=== PATIENT | female | born 1970 | race Caucasian/White ===

== ENCOUNTER 2019-10-28 12:25 | Outpatient (CLI) | payer OTHER, SELFPAY ==
[2019-10-28 13:20] LABS: Alanine Aminotransferase 15 U/L (4-35); Albumin Level 4.5 g/dL (3.5-5.1); Alkaline Phosphatase 80 U/L (38-126); Aspartate Amino Transferase 25 U/L (14-36); Bilirubin,Total 0.3 mg/dL (0.2-1.3); Blood Urea Nitrogen 15 mg/dL (7-17); Calcium 8.9 mg/dL (8.4-10.2); Carbon Dioxide 26 mmol/L (22-30); Chloride 106 mmol/L (98-107); Estimated Glomerular Filt Rate > 60; Glucose 99 mg/dL (65-105); Potassium 4.6 mmol/L (3.4-5.0); Sodium 140 mmol/L (137-145)
[2019-10-28 13:27] LABS: Hematocrit 36.7 % (37.0-47.0); Hemoglobin 12.1 g/dL (12.0-15.0); Mean Corpuscular Hemoglobin 29.4 pg (26-34); Mean Corpuscular Volume 89.1 fl (80-100); Mean Platelet Volume 11.3 fl (7.4-10.4); Platelet Count Result 283 k/mm3 (150-375); Red Blood Count 4.12 M/mm3 (4.2-5.4); Red Cell Distribution Width 13.2 % (11.5-14.5); White Blood Count 5.7 K/mm3 (4.5-10.0)
[2019-10-28 14:20] LABS: Iron 85 ug/dL (37-170)
[2019-10-28 14:30] LABS: Percent Iron Saturation 24 % (20-50)
[2019-11-01 10:13] LABS: Vitamin D 1,25 (OH)2 Total 39 pg/mL (18-72); Vitamin D2 1,25 (OH)2 <8 pg/mL; Vitamin D3 1,25 (OH)2 39 pg/mL
== END 2019-10-28 12:26 | disposition home or self-care (01) ==
LOC: ANHLAB 12:27
PROVIDERS: Physician Assistant; PCP Family Medicine; Visit Provider Family Medicine
DX: I10 Essential (primary) hypertension (principal); D50.9 Iron deficiency anemia, unspecified; E55.9 Vitamin D deficiency, unspecified
CPT/HCPCS: 36415; 80053; 82652; 82728; 83540; 83550; 85027

== ENCOUNTER 2020-03-12 14:24 | Outpatient (CLI) | payer OTHER, SELFPAY ==
[2020-03-12 15:14] LABS: Alanine Aminotransferase 16 U/L (4-35); Albumin Level 4.2 g/dL (3.5-5.1); Alkaline Phosphatase 81 U/L (38-126); Aspartate Amino Transferase 26 U/L (14-36); Bilirubin,Total 0.3 mg/dL (0.2-1.3)
== END 2020-03-12 14:25 | disposition home or self-care (01) ==
PROVIDERS: PCP Family Medicine; Visit Provider Podiatrist Foot & Ankle Surgery
DX: B35.1 Tinea unguium (principal)
CPT/HCPCS: 36415; 80076

== ENCOUNTER 2021-04-08 16:04 | Outpatient (CLI) | payer OTHER, SELFPAY ==
[2021-04-08 16:24] LABS: Hematocrit 36.7 % (37.0-47.0); Hemoglobin 12.7 g/dL (12.0-15.0); Mean Corpuscular HGB Conc 34.6 g/dl (32-36); Mean Corpuscular Hemoglobin 31.1 pg (26-34); Mean Corpuscular Volume 89.7 fl (80-100); Platelet Count Result 285 k/mm3 (150-375); Red Blood Count 4.09 M/mm3 (4.2-5.4); Red Cell Distribution Width 12.3 % (11.5-14.5); White Blood Count 8.1 K/mm3 (4.5-10.0)
[2021-04-08 16:55] LABS: Alanine Aminotransferase 15 U/L (4-35); Albumin Level 4.3 g/dL (3.5-5.1); Alkaline Phosphatase 74 U/L (38-126); Anion Gap 9 mmol/L (8-16); Aspartate Amino Transferase 24 U/L (14-36); Bilirubin,Total 0.4 mg/dL (0.2-1.3); Blood Urea Nitrogen 21 mg/dL (7-17); Calcium 9.5 mg/dL (8.4-10.2); Carbon Dioxide 25 mmol/L (22-30); Chloride 108 mmol/L (98-107); Estimated Glomerular Filt Rate 43; Glucose 93 mg/dL (65-110); Potassium 4.5 mmol/L (3.4-5.0); Sodium 142 mmol/L (137-145)
[2021-04-08 17:56] LABS: Add Urine Microscopic? YES; Appearance Urine Cloudy (Clear); Bacteria Urine Trace /hpf; Bilirubin Urine Negative (Negative); Blood Urine Negative (Negative); Color Urine Amber (Yellow); Glucose Urine UA Negative (Negative); Ketones Urine Negative (Negative); Leukocyte Esterase Ur 3+ LEU/UL (NEGATIVE); Mucus Urine Rare /lpf; Nitrate Urine Negative (Negative); Protein Urine Negative (Negative); Specific Grav Ur 1.026 (1.001-1.035); Squamous Epithelial Cell Urine Few /hpf (Few); Urobilinogen Urine Negative mg/dL (<2.0); WBC Urine >75 /hpf (0-3)
[2021-04-08 17:57] LABS: Vitamin D 25 Hydroxy 36.1 ng/mL
[2021-04-08 18:29] LABS: Iron 55 ug/dL (37-170)
[2021-04-08 18:33] LABS: Percent Iron Saturation 15 % (20-50)
== END 2021-04-08 16:05 | disposition home or self-care (01) ==
LOC: ANHLAB 16:05
PROVIDERS: PCP Family Medicine; Visit Provider Physician Assistant
DX: Z00.00 Encounter for general adult medical examination without abnormal findings (principal); D50.9 Iron deficiency anemia, unspecified; E55.9 Vitamin D deficiency, unspecified; K22.70 Barrett's esophagus without dysplasia; K21.9 Gastro-esophageal reflux disease without esophagitis; I10 Essential (primary) hypertension
CPT/HCPCS: 36415; 80053; 81001; 82306; 82728; 83540; 83550; 84443; 85027

== ENCOUNTER 2021-12-22 09:49 | Outpatient (CLI) | payer OTHER, SELFPAY ==
[2021-12-22 10:22] LABS: Hematocrit 38.6 % (37.0-47.0); Hemoglobin 12.5 g/dL (12.0-15.0); Mean Corpuscular HGB Conc 32.4 g/dl (32-36); Mean Corpuscular Hemoglobin 29.8 pg (26-34); Mean Corpuscular Volume 92.1 fl (80-100); Mean Platelet Volume 11.2 fl (7.4-10.4); Platelet Count Result 242 k/mm3 (150-375); Red Blood Count 4.19 M/mm3 (4.2-5.4); Red Cell Distribution Width 12.9 % (11.5-14.5); White Blood Count 5.4 K/mm3 (4.5-10.0)
[2021-12-22 10:44] LABS: Alanine Aminotransferase 16 U/L (6-35); Albumin Level 4.3 g/dL (3.5-5.1); Alkaline Phosphatase 66 U/L (38-126); Anion Gap 8 mmol/L (8-16); Aspartate Amino Transferase 27 U/L (14-36); Bilirubin,Total 0.4 mg/dL (0.2-1.3); Blood Urea Nitrogen 18 mg/dL (7-17); CRP < 0.5 mg/dL (<1.0); Carbon Dioxide 26 mmol/L (22-30); Chloride 107 mmol/L (98-107); Estimated Glomerular Filt Rate 52; Glucose 97 mg/dL (65-110); Potassium 3.6 mmol/L (3.4-5.0); Sodium 141 mmol/L (137-145)
[2021-12-22 10:47] LABS: Appearance Urine Clear (Clear); Bilirubin Urine Negative (Negative); Blood Urine Negative (Negative); Color Urine Yellow (Yellow); Glucose Urine UA Negative (Negative); Ketones Urine Negative (Negative); Leukocyte Esterase Ur Negative LEU/UL (Negative); Nitrate Urine Negative (Negative); Protein Urine Negative (Negative); Urobilinogen Urine 0.2 mg/dL (<2.0)
[2021-12-22 11:05] LABS: Erythrocyte Sedimentation Rate 15 mm/hr (0-20)
[2021-12-22 11:34] LABS: Add Urine Microscopic? NO
== END 2021-12-22 09:50 | disposition home or self-care (01) ==
PROVIDERS: PCP Family Medicine
DX: R07.89 Other chest pain (principal); R13.10 Dysphagia, unspecified; R19.4 Change in bowel habit; K21.9 Gastro-esophageal reflux disease without esophagitis; R14.0 Abdominal distension (gaseous); R32 Unspecified urinary incontinence; R15.9 Full incontinence of feces
CPT/HCPCS: 36415; 80053; 81003; 84443; 85027; 85652; 86140

== ENCOUNTER 2023-02-07 13:21 | Emergency (ER) | payer OTHER, SELFPAY ==
--- NOTE | 2023-02-07 13:26 | ED.URI ---
HPI - URI/Sore Throat General Chief Complaint: Upper Respiratory Infection Stated Complaint: Ear ache; Sore Thraot Time Seen by Provider: 02/07/23 13:41 Source: patient and RN notes reviewed Mode of arrival: ambulatory Limitations: no limitations History of Present Illness HPI Narrative: 52 year old female presents with concern for nasal congestion, rhinorrhea, body aches, fatigue, sore throat, bilateral ear pain, chest congestion and cough. Reports symptoms started on Wednesday. She reports she has been taking DayQuil ibuprofen. She reports she has lost her voice MD elicited complaint: cough, sore throat and other (ear pain) Related Data Allergies Allergy/AdvReac Type Severity Reaction Status Date / Time lisinopril Allergy Unknown unk Verified 02/07/23 13:24 olmesartan Allergy Unknown Unknown Verified 02/07/23 13:24 Review of Systems Review of Systems: CONSTITUTIONAL: Report malaise, fatigue. EYES: Denies visual changes, redness, or discharge. ENT: Reports rhinorrhea, congestion, sinus pain, otalgia and sore throat. CARDIOVASCULAR: Denies chest pain, palpitations, or edema. RESPIRATORY: Reports cough. Denies dyspnea. GASTROINTESTINAL: Denies abdominal pain, nausea, vomiting, diarrhea SKIN: Denies rash or itching. MUSCULOSKELETAL: Reports myalgia. NEUROLOGIC: Denies headache. All systems reviewed & are unremarkable except as noted in HPI and below PMFSH Past Medical History Medical History López's esophagus GERD (gastroesophageal reflux disease) HTN (hypertension) JORDI (iron deficiency anemia) Left shoulder pain Vitamin D deficiency Family History Family History Father Diabetes mellitus Other Hypertension Social History Social History Smoking status: Never smoker Second hand tobacco smoke exposure: No Alcohol intake: never Substance use: never Substance use type: does not use Living arrangements: with family Occupation/Education: occupation Gender identity (if verbalized by the patient): Female Sexual Orientation (if Verbalized by the Patient): Straight or Heterosexual Comments At time of signature, agree with nursing past medical, surgical, social and family history. There is no relevant family history pertinent to the presenting complaint Exam Narrative: GENERAL: Well-appearing, well-nourished, and in no acute distress. HEAD: Normocephalic EYES: PERRLA, conjunctivae clear ENT: Nares clear, turbinates edematous and erythematous. Mucous membranes moist. Right TM pearly leach with dull light reflex, left TM erythematous and bulging; no tragal tenderness. Oropharynx not erythematous without lesions. Tonsils not enlarged and without exudate, no drooling, no trismus, uvula midline. Hoarse voice NECK: Supple. No lymphadenopathy CHEST: Clear to auscultation, breath sounds equal. No wheezing, rhonchi, rales, or stridor. No respiratory distress, speaks in full sentences. HEART: Regular rate and rhythm. No murmur heard. SKIN: Warm, dry, no rash. NEURO: Alert and oriented x3. PSYCH: Normal mood and affect Course Course Emergency Course: Patient is aware of diagnosis, understands and agrees to treatment plan. Anticipatory guidance given. Patient agrees to follow-up as directed and is aware of reasons to seek care at the emergency department. Portions of this record may have been created with voice recognition software Level of Care: Express Care Visit Vital Signs Vital signs: Reviewed. MDM - URI/Sore Throat MDM Narrative Medical decision making narrative: Differential diagnosis considered: Edward virus, strep pharyngitis, allergic rhinitis, upper respiratory tract infection, sinusitis, rhinosinusitis, nasopharyngitis. viral pharyngitis, otitis media, otitis externa, pneumonia, bronchitis, viral cough sy
[2023-02-07 13:28] VITALS: BP 153/99; PULSE 82; RESP 16; TEMP 36.8; O2SAT 100
== END 2023-02-07 13:52 | disposition home or self-care (01) ==
PROVIDERS: Emergency Provider Nurse Practitioner; PCP Family Medicine
DX: H66.92 Otitis media, unspecified, left ear (principal); J06.9 Acute upper respiratory infection, unspecified; I10 Essential (primary) hypertension; K21.9 Gastro-esophageal reflux disease without esophagitis; E55.9 Vitamin D deficiency, unspecified
CPT/HCPCS: 87081; 87880; 99213; G0463

== ENCOUNTER 2024-03-02 09:00 | Outpatient (CLI) | payer OTHER, SELFPAY ==
[2024-03-02 09:46] LABS: Hematocrit 37.9 % (37.0-47.0); Hemoglobin 11.9 g/dL (12.0-15.0); Mean Corpuscular HGB Conc 31.4 g/dl (32-36); Mean Corpuscular Hemoglobin 27.6 pg (26-34); Mean Corpuscular Volume 87.9 fl (80-100); Mean Platelet Volume 11.5 fl (7.4-10.4); Platelet Count Result 334 k/mm3 (150-375); Red Blood Count 4.31 M/mm3 (4.2-5.4); Red Cell Distribution Width 13.1 % (11.5-14.5); White Blood Count 7.3 K/mm3 (4.5-10.0)
[2024-03-02 09:49] LABS: Add Urine Microscopic? YES; Appearance Urine Clear (Clear); Bacteria Urine None Seen /hpf; Bilirubin Urine Negative (Negative); Blood Urine Negative (Negative); Color Urine Yellow (Yellow); Glucose Urine UA Negative (Negative); Ketones Urine Negative (Negative); Leukocyte Esterase Ur Trace LEU/UL (Negative); Nitrate Urine Negative (Negative); Non Pathogenic Casts 0-2; Protein Urine Trace mg/dL (Negative); RBC Urine 0-2 /hpf (0-2); Specific Grav Ur 1.016 (1.001-1.035); Squamous Epithelial Cell Urine None Seen /hpf (Few); Urobilinogen Urine 0.2 mg/dL (<2.0); WBC Urine 0-5 /hpf (0-3)
[2024-03-02 09:56] LABS: Alanine Aminotransferase 19 U/L (6-35); Albumin Level 4.2 g/dL (3.5-5.1); Alkaline Phosphatase 96 U/L (38-126); Anion Gap 7 mmol/L (4-12); Aspartate Amino Transferase 30 U/L (14-36); Bilirubin,Total 0.2 mg/dL (0.2-1.3); Blood Urea Nitrogen 14 mg/dL (7-17); Calcium 9.4 mg/dL (8.4-10.2); Carbon Dioxide 28 mmol/L (22-30); Chloride 107 mmol/L (98-107); Cholesterol 173 mg/dL (0-200); Estimated Glomerular Filt Rate > 60; Glucose 108 mg/dL (65-110); HDL Direct 55 mg/dL; Sodium 142 mmol/L (137-145); Triglycerides 147 mg/dL (<150)
[2024-03-02 10:07] LABS: LDL Cholesterol Direct 77 mg/dL
[2024-03-02 10:57] LABS: Vitamin D 25 Hydroxy 36.1 ng/mL
== END 2024-03-02 09:01 | disposition home or self-care (01) ==
PROVIDERS: PCP Family Medicine; Visit Provider Physician Assistant Medical
DX: Z00.00 Encounter for general adult medical examination without abnormal findings (principal); E55.9 Vitamin D deficiency, unspecified; I10 Essential (primary) hypertension
CPT/HCPCS: 36415; 80053; 80061; 81001; 82306; 84443; 85027

== ENCOUNTER 2024-11-02 04:52 | Emergency (ER) | payer OTHER, SELFPAY ==
--- NOTE | ~2024-11-02 | CT_ITS ---
CT of the Abdomen and Pelvis: Indication: Right upper quadrant pain Technique: 2.5 mm axial scans were obtained through the abdomen and pelvis following intravenous adm inistration of 100 cc of Omnipaque 350. Dose reduction technique was used on this scan by utilizing a utomated exposure control and iterative reconstruction technique. The dose-length product (DLP) was 1 180.69 mGy-cm. Findings: Scans through the lung bases are unremarkable. Large hiatal hernia present. The liver, spleen, gallbladder, adrenals and kidneys are within normal limits. There is relative fatt y infiltration of the pancreatic head as compared to the body/tail. No evidence of aortic aneurysm. No lymphadenopathy. No bowel obstruction or bowel wall thickening. There is no evidence to suggest acute appendicitis. Images through the pelvis were performed. Urinary bladder unremarkable. No pelvic mass seen. No ascit es. Impression: Large hiatal hernia. Normal gallbladder by CT imaging. Reviewed, dictated and finalized at [facility]. Impression: Large hiatal hernia. Normal gallbladder by CT imaging.
--- NOTE | ~2024-11-02 | XR_ITS ---
Clinical Indication: Chest pain PA and lateral views of the chest: Comparison: 03/16/2018 Findings: The lungs are clear, without evidence of focal consolidation or pleural effusion. Cardiome diastinal silhouette is within normal limits. Suspected moderate hiatal hernia. Osseous structures in tact. Impression: Clear lungs. Suspected moderate hiatal hernia. Reviewed, dictated and finalized at location . Impression: Clear lungs. Suspected moderate hiatal hernia.
--- OUTSIDE RECORDS SUMMARY | 2024-11-02 04:54 | XMS_ITS | Clinical Summary ---
Author Organization [facility] Address [address] [facility], [address] [address] Phone Care Team Providers Care Angle Dozer Operator Name Role Phone Olegario Connell MD Primary Care Provider Allergies Active Allergy Reactions Criticality Noted Date Comments Lisinopril Other (see Comments) 06/14/2018 cough Medications FEROSUL 325 (65 Fe) MG Tablet TK 1 T PO BID QD ON AN EMPTY STOMACH WITH A GLASS OF ORANGE JUICE 2 05/24/2018 Active Ascorbic Acid (VITAMIN C PO) Take 1 Tab by mouth daily. Active Cholecalciferol (VITAMIN D PO) Take by mouth. Active Acetaminophen (TYLENOL PO)Indications: bedtime prn Take by mouth. Active DiphenhydrAMINE HCl (BENADRYL PO)Indications: bedtime prn Take by mouth. Active omeprazole (PRILOSEC) 40 MG CAPSULE DELAYED RELEASE Take 1 Cap by mouth daily. 90 Cap 06/28/2018 Active Bismuth 262 MG Chewable Tablet 3 PO QID FOR 10 DAYS 120 Tab 06/29/2018 Active metroNIDAZOLE (FLAGYL) 250 MG Tablet TAKE 1.5 TABS PO QID FOR 10 DAYS 60 Tab 06/29/2018 Active doxycycline hyclate (VIBRAMYCIN) 100 MG Capsule TAKE ONE TAB BID FOR 10 DAYS 20 Cap 06/29/2018 Active omeprazole (PRILOSEC) 20 MG CAPSULE DELAYED RELEASE TAKE 1 CAPSULE BY MOUTH TWICE DAILY 180 Cap 3 06/29/2018 Active Family History Medical History Relation Name Comments Anxiety disorder Brother 1 Bipolar Disorder Brother 1 Depression Brother 1 No Known Problems Brother 2 Diabetes Father Hypertension Father Cancer Maternal Aunt lung Rashes/Skin Problems Maternal Aunt anxiet y Cancer Maternal Grandfather pancrea tic Stroke Maternal Grandmother Cancer Maternal Uncle leukemia Anxiety disorder Mother Depression Mother anxiety Hypertension Sister 1 Other-comment Sister 1 autoimmune ski n issue/ unknown Other-comment Sister 2 auto immune sk in issue/unknown Relation Name Status Comments Brother 1 Brother 2 Father Alive Maternal Aunt Maternal Grandfather Maternal Grandmother Maternal Uncle Mother Alive Sister 1 Sister 2 Social History Tobacco Use Types Packs/Day Years Used Date Smoking Tobacco: Never Smokeless Tobacco: Never Alcohol Use Standard Drinks/Week Comments Yes 0 (1 standard drink = 0.6 oz pur e alcohol) rarely PHQ-2 Answer Date Recorded PHQ-2 Score 0 02/18/2019 Comments Unknown Sex and Gender Information Value Date Recorded Sex Assigned at Not on file Legal Sex Female 10:32 PM CDT Gender Identity Not on file Sexual Orientation Not on file Occupation Industry Job Start Date Job End Date nurse Not on file Not on file Not on file Last Filed Vital Signs Vital Sign Reading Time Taken Comments Blood Pressure 149/95 06/28/2018 10:25 AM MARINE EQUIPMENT PRESERVATION INSPECTOR Pulse 58 06/28/2018 10:25 AM MARINE EQUIPMENT PRESERVATION INSPECTOR Temperature 36 C (96.8 F) 06/28/2018 10:25 AM MARINE EQUIPMENT PRESERVATION INSPECTOR Respiratory Rate 16 06/28/2018 10:25 AM MARINE EQUIPMENT PRESERVATION INSPECTOR Oxygen Saturation 99% 06/28/2018 10:25 AM MARINE EQUIPMENT PRESERVATION INSPECTOR Inhaled Oxygen Concentration - - Weight 91.6 kg (202 lb) 06/14/2018 3:00 PM MARINE EQUIPMENT PRESERVATION INSPECTOR Height 165.1 cm (5' 5) 06/14/2018 3:00 PM MARINE EQUIPMENT PRESERVATION INSPECTOR Body Mass Index 33.61 06/14/2018 3:00 PM MARINE EQUIPMENT PRESERVATION INSPECTOR Plan of Treatment Health Maintenance Due Date Last Done Comments Hepatitis C Virus (HCV) Screening 1968 TdaP Immunization 1968 Hepatitis B Immunization (1 of 3 - 19+ 3-dose series) 1987 Colonoscopy 2013 Colorectal Cancer Screening 2013 Cologuard 2018 Immunochemical Fecal Occult Blood 2018 Pneumococcal Immunization (5 0+ years) (1 of 1 - PCV) 2018 Zoster Immunization (1 of 2) 2018 Influenza Immunization (#1) 2024 SARS-COV-2 Immunization (2023-25 season) 2024 06/16/2020, 05/26/2020 Respiratory Syncytial Virus (RSV) Immunization (Adult) (1 - 1-dose 75+ series) 2043 Meningococcal Immunization (ACWY) Aged Out No longer eligible b ased on patient's age to complete this topic Rotavirus Immunization Aged Out No lo nger eligible based on patient's age to complete this topic Insurance [facility] Care Teams Angle Dozer Operator Relationship Specialty Start Date End Date Olegario Connell MD [address] [place] [address] PCP - General Family Medicine 04/12/18
--- OUTSIDE RECORDS SUMMARY | 2024-11-02 04:55 | XMS_ITS | Clinical Summary ---
Author Organization [facility] [address] Address [address] [place] [address] Care Team Providers Care Docking Pilot Name Role Phone Olegario Connell MD Primary Care Provider Allergies Active Allergy Reactions Criticality Noted Date Comments Lisinopril Other (See comments) Low 06/14/2018 cough Medications ferrous sulfate 325 mg (65 mg of elemental iron) tablet TK 1 T PO BID QD ON AN EMPTY STOMACH WITH A GLASS OF ORANGE JUICE 8 Active irbesartan (AVAPRO) 150 mg tablet Take 150 mg by mouth daily 2 Active omeprazole (PriLOSEC) 40 mg capsule Take 40 mg by mouth daily 9 Active methylcellulose , laxative, powder Take 1 tablespoon (approximately 15gm) at night/evening daily with 8-16 ounces of water. 1191 g 2 2 Active sod picosulf-mag ox-citric ac (Clenpiq) 10 mg-3.5 gram -12 gram/160 mL solution Take 1 kit by mouth as directed 320 mL 2 Active Active Problems Problem Noted Date Diagnosed Date Dysphagia 12/22/2021 Assessment & Plan (12/22/2021 12:01 PM CDT): -dysphagia with GERD -will schedule for an upper endoscopy for further evaluation -the meantime she will continue with PPI as before Change in bowel habits 12/22/2021 Chest pressure 12/22/2021 Assessment & Plan (12/22/2021 11:59 AM CDT): -no overt chest pain. Not related to exertion. No prior stress test. -recommended to seek immediate medical attention and go to the ER if symptoms worsen in any way. Offered going to ER today also. -has appointment with Cardiology in January. Recommended to prep on the appointment. Gastroesophageal reflux disease 12/22/2021 Bloating 12/22/2021 Urinary and fecal incontinence 12/22/2021 Assessment & Plan (12/22/2021 12:03 PM CDT): -at night, one time episode? One episode of urinary incontinence at night years ago? -no daytime symptoms. Regular bowel movements. No symptoms of fecal or urinary incontinence during the day. -prior 3 C-sections. No vaginal deliveries. -this was the main reason that prompted her to seek this clinic appointment. Therefore will do basic evaluation with CBC, CMP and ESR and CRP and a urinalysis to evaluate for basic hematological, metabolic, hepatic biomarkers, inflammatory biomarkers and to check back for urinary tract infection as a cause for possible urinary incontinence -also obtain TSH to evaluate for thyroid abnormality. -also obtain JANEL for possibility of autoimmune phenomenon however that is unlikely and low on differential -concern for neurological disease such as MS -discussed with her in detail. Particularly given the fact that she does not have any daytime symptoms at all and this happen at nighttime and was common urinary and fecal incontinence it is unlikely to be connected to mechanical GI issue. It does appear to be connected to neurological issue and emesis remains high on differential. -will refer to neurology for evaluation for emesis after the next clinic visit, particularly after she has seen Cardiology for her chest pressure sensation -will initiate therapy with soluble fiber supplementation daily. Screening for colon cancer 12/22/2021 Assessment & Plan (12/22/2021 12:00 PM CDT): -prior colonoscopy years ago. No family history of colon cancer. One time symptom of fecal and urinary incontinence as noted above, will schedule for a colonoscopy with ileoscopy for further evaluation. Contact dermatitis 10/25/2012 Encounters Date Type Department Care Team Description 09/07/2024 3:19 PM CDT - 09/07/2024 11:59 PM CDT Hospital Encounter [facility] [address] [place] [address] Pre-employment health screening examination Discharge Disposition: Discharge to home or self care 09/07/2024 Orders Only [facility] [address] (Third Floor) [place] [address] Hardeep Crump MD Pre-employment health screening examination (Primary Dx) from Last 3 Months Immunizations Immunization Administration Dates Next Due Pfizer SARS-CoV-2 Monovalent Vaccination (12+ Yrs) PURPLE 06/16/2020,05/26/2020 Surgical History Surgery Date Site/Laterality Comments UPPER GASTROINTESTINAL ENDOSCOPY 06/28/2018 [facility] [place], [place] Medical History Medical History Date Comments Hx Other Medical 3 sect ions ; Comments: JNS 11/01/2014 - Social History Tobacco Use Types Packs/Day Years Used Date Smoking Tobacco: Never Comments Unknown Sex and Gender Information Value Date Recorded Sex Assigned at Not on file 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 Gender Identity Not on file Sexual Orientation Not on file Obstetrics History Last Filed Vital Signs Vital Sign Reading Time Taken Comments Blood Pressure 120/80 12/22/2021 8:12 AM CDT Pulse 57 12/22/2021 8:12 AM CDT Temperature - - Respiratory Rate 12 12/22/2021 8:12 AM CDT Oxygen Saturation 98% 12/22/2021 8:12 AM CDT Inhaled Oxygen Concentration - - Weight 97.9 kg (215 lb 12.8 oz) 12/22/2021 8:12 AM CDT Height 166.4 cm (5' 5.5) 12/22/2021 8:12 AM CDT Body Mass Index 35.36 12/22/2021 8:12 AM CDT Plan of Treatment Health Maintenance Due Date Last Done Comments Breast Cancer Screening-Mammogram 1968 Cervical Cancer Screening 1968 Colon Cancer Screening-Colonoscopy 1968 Depression Screening 1968 Hepatitis C Screening 1968 DTaP/Tdap/Td Vaccine (1 - Tdap) 1979 Hepatitis B Screening 1986 Regular Well Visit/Exam 18-64 1986 Zoster Vaccine (1 of 2) 2018 Covid-19 Vaccine (2023-2 5 season) 2024 06/12/2022, 06/16/2020, 05/26/2020 Influenza Vaccine (Season Ended) 2025 Pneumococcal vaccine <65 Aged Out No longer eligible based on patient's age to complete this topic Procedures Procedure Name Priority Date/Time Associated Diagnosis Comments T-SPOT.TB Routine 09/07/2024 10:46 AM CDT Pre-employment health screening examination RUBELLA IGG Routine 09/07/2024 10:46 AM CDT Pre-employment health screening examination MUMPS IGG ANTIBODY Routine 09/07/2024 10 :46 AM CDT Pre-employment health screening examination MEASLES IGG ANTIBODY Routine 09/07/2024 10:46 AM CDT Pre-employment health screening examination VARICELLA ZOSTER ANTIBODY, IGG Routine 09/07/2024 10:46 AM CDT Pre-employment health screening examination from Last 3 Months Results * T-SPOT.TB Blood (09/07/2024 10:46 AM CDT) [facility] T-SPOT.TB Negative SeeBel Comment: Normal Value: Negative A negative test result does not exclude the possibility of exposure to or infection with Mycobacterium tuberculosis (M. tuberculosis). Patients with recent exposure to TB infected individuals exhibiting a negative T-SPOT.TB result should be considered for retesting within 6 weeks or if other relevant clinical symptoms indicate. Results from T-SPOT.TB testing must be used in conjunction with each individual's epidemiological history, current medical status, and results of other diagnostic evaluations. The T-SPOT.TB test is qualitative and results are reported as positive, borderline or negative, given that the test controls perform as expected. In line with the Centers for Disease Control and Prevention's 2010 recommendation to report quantitative measurements alongside the qualitative result, the laboratory provides spot counts for informational purposes only. The T-SPOT.TB test should not be interpreted as a quantitative test. T-SPOT.TB Panel A Spot Count 0 [facility] T-SPOT.TB Panel B Spot Count 1 [facility] T-SPOT.TB Negative Control Passed [facility] T-SPOT.TB Positive Control Passed [facility] Comment: Test Performed at: [id number], [employer] [address] [place] [id number] EDDIE CAMEJO,PHD Blood 09/07/2024 10:4 6 AM CDT 09/07/2024 4:15 PM CDT Narrative [facility] - 09/09/2024 11:12 AM CDT Patient is employed by/enrolled at:->[employer] [facility] Hardeep Crump MD LAB MICROBIOLOGY - GENERAL OR DERABLES Final Result Performing Organization Address City/[facility] [employer] de Phone Number [facility] [place] [address] * Measles IgG antibody Blood (09/07/2024 10:46 AM CDT) Measles IgG Reactive Comment:Reactive: Results gruber ggest response to immunization or prior exposure to the virus. Blood 09/07/2024 10:4 6 AM CDT 09/07/2024 4:04 PM CDT Narrative [facility] - 09/08/2024 11:22 AM CDT Patient is employed by/enrolled at:->[facility] Hardeep Crump MD LAB MICROBIOLOGY - GENERAL OR DERABLES Final Result Performing Organization Address City/[facility]/[employer] Phone Number [facility] [place] [address] * Rubella IgG antibody Blood (09/07/2024 10:46 AM CDT) Rubella IgG Reactive Comment:Reactive: Results gruber ggest response to immunization or prior exposure to the virus. Blood 09/07/2024 10:4 6 AM CDT 09/07/2024 4:04 PM CDT Narrative [facility] - 09/08/2024 11:22 AM CDT Patient is employed by/enrolled at:->[facility] Hardeep Crump MD LAB MICROBIOLOGY - GENERAL OR DERABLES Final Result Performing Organization Address City/[facility]/[employer] Phone Number [facility] [place] [address] * Varicella Zoster IgG antibody Blood (09/07/2024 10:46 AM CDT) VZV IgG Reactive Reactive Comment:Reactive: Results gruber ggest response to immunization or prior exposure to the virus. Blood 09/07/2024 10:4 6 AM CDT 09/07/2024 4:04 PM CDT Narrative [facility] - 09/08/2024 11:22 AM CDT Patient is employed by/enrolled at:->[facility] Hardeep Crump MD LAB MICROBIOLOGY - GENERAL OR DERABLES Final Result Performing Organization Address [facility]/[place] [address] * Mumps IgG antibody Blood (09/07/2024 10:46 AM CDT) Mumps IgG Reactive Comment:Reactive: Results gruber ggest response to immunization or prior exposure to the virus Blood 09/07/2024 10:4 6 AM CDT 09/07/2024 4:04 PM CDT Narrative [facility] - 09/08/2024 11:22 AM CDT Patient is employed by/enrolled at:->[facility] Hardeep Crump MD LAB MICROBIOLOGY - GENERAL OR DERABLES Final Result Performing Organization Address City/[facility] [address] from Last 3 Months Insurance [facility] Care Teams Docking Pilot Relationship Specialty Start Date End Date Olegario Connell MD [address] [facility] [address] [place] [address] PCP - General Family Medicine 04/03/20
--- OUTSIDE RECORDS SUMMARY | 2024-11-02 04:55 | XMS_ITS | Patient Health Record ---
Author Organization [employer] Address [address] [place] [address] Care Team Providers Care Field Operations Coordinator Name Role Phone Olegario Connell MD Primary Care Provider Unavaila ble Allergies Allergen (clinical drug ingredient) Drug/Non Drug Allergy documented on EMR Reaction Allergy Type Onset Date Status lisinopril Lisinopril Unknown Drug Allergy Activ e Reason For Referral No Information Medications Medication SIG (Take, Route, Frequency, Duration) Notes Start Date End Date Status PriLOSEC Active Irbesartan Active OTC/Vitamins Iron, MVI, Vit E , Vi B12, Vit D Active Social History Tobacco Use: Social History Observation Description Date Details (start date - stop date) Never Smoker NA - NA Tobacco Use/Smoking Question Answer Notes Are you a nonsmoker Problems Problem Type SNOMED Code ICD Code Onset Dates Problem Status W/U Status Risk Notes Problem 596047882 Chronic GERD (K21.9) Active confirmed She is currently doing well on Prilosec 20mg at nighttime. She does have mild solid food dysphagia. Will obtain her previous EGD report before considering repeat. 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 Problem [id number] Incontinence of feces, unspecified fecal incontinence type (R15.9) Active confirmed This was one episode and has not happened since. She does have a history of prior rectal injury but I am not sure if this is playing a role or not. Will monitor for now Plan Of Treatment No Information Insurance Providers Payer Name Payer Address Payer Phone Subscriber Number Group Number Insured Name Patient Relationship to Insured Coverage Start Date Coverage End Date [facility] [employer] E2 [address] [address] [place] [phone] [id number] Maris Reed Self - patient is the insured Medical (General) History Medical History History ICD Code GERD López's Esophagus Anemia Hypertension Surgical History Surgery Date(Month/Year) EGD (Outside Provider) 5+ years Colonoscopy (Outside Provider) 5+ years x3 Hospitalization History Reason Date(Month/Year) GERD, rule out cardiac issues
--- OUTSIDE RECORDS SUMMARY | 2024-11-02 04:55 | XMS_ITS | Referral Summary ---
Author Organization [facility] [address] Address [address] [place] [address] Care Team Providers Care Scow Hand Name Role Phone Olegario Connell MD Primary Care Provider Encounters Date Type Department Care Team Description 09/07/2024 3:19 PM CDT - 09/07/2024 11:59 PM CDT Hospital Encounter [facility] [address] [place] [address] Pre-employment health screening examination Discharge Disposition: Discharge to home or self care 09/07/2024 Orders Only [facility] Healthcare Occup[facility]onal Health [address] (Third Floor) [place] [address] Hardeep Crump MD Pre-employment health screening examination (Primary Dx) from Last 3 Months Allergies Active Allergy Reactions Criticality Noted Date [...] ileoscopy for further evaluation. 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 T-SPOT.TB Panel A Spot Count 0 [facility] T-SPOT.TB Panel B Spot Count 1 [facility] T-SPOT.TB Negative Control Passed [facility] T-SPOT.TB Positive Control Passed [facility] Comment: Test Performed at: [facility] [employer] [address] [place] [id number] EDDIE CAMEJO,PHD Blood 09/07/2024 10:4 6 AM CDT 09/07/2024 4:15 PM CDT Narrative [facility] - 09/09/2024 11:12 AM CDT Patient is employed by/enrolled at:->[facility] Hardeep Crump MD LAB MICROBIOLOGY - GENERAL OR DERABLES Final Result [facility] [place] [address] * Measles IgG antibody Blood (09/07/2024 10:46 AM CDT) Measles IgG Reactive Comment:Reactive: Results gruber ggest response to immunization or prior exposure to the virus. Blood 09/07/2024 10:4 6 AM CDT 09/07/2024 4:04 PM CDT Narrative [facility] - 09/08/2024 11:22 AM CDT Patient is employed by/enrolled at:->[facility] us Hardeep Crump MD LAB MICROBIOLOGY - GENERAL OR DERABLES Final Result Performing Organization Address [facility] de Phone Number [facility] [place] [address] * Rubella IgG antibody Blood (09/07/2024 10:46 AM CDT) Rubella IgG Reactive Comment:Reactive: Results gruber ggest response to immunization or prior exposure to the virus. Blood 09/07/2024 10:4 6 AM CDT 09/07/2024 4:04 PM CDT Narrative [facility] - 09/08/2024 11:22 AM CDT Patient is employed by/enrolled at:->[facility] us Hardeep Crump MD LAB MICROBIOLOGY - GENERAL OR DERABLES Final Result Performing Organization Address [facility] de Phone Number [facility] [place] [employer] [place] [address] * Varicella Zoster IgG antibody Blood (09/07/2024 10:46 AM CDT) VZV IgG Reactive Reactive Comment:Reactive: Results gruber ggest response to immunization or prior exposure to the virus. Blood 09/07/2024 10:4 6 AM CDT 09/07/2024 4:04 PM CDT Narrative [facility] - 09/08/2024 11:22 AM CDT Patient is employed by/enrolled at:->[facility] us Hardeep Crump MD LAB MICROBIOLOGY - GENERAL OR DERABLES Final Result [facility] [place] [address] * Mumps IgG antibody Blood (09/07/2024 10:46 AM CDT) Mumps IgG Reactive Comment:Reactive: Results gruber ggest response to immunization or prior exposure to the virus Blood 09/07/2024 10:4 6 AM CDT 09/07/2024 4:04 PM CDT Narrative [facility] - 09/08/2024 11:22 AM CDT Patient is employed by/enrolled at:->[facility] us Hardeep Crump MD LAB MICROBIOLOGY - GENERAL OR DERABLES Final Result Performing Organization Address [facility] Co de Phone Number [facility] [place] [address] from Last 3 Months Insurance [facility] Care Teams Scow Hand Relationship Specialty Start Date End Date Olegario Connell MD [address] [facility] [address] [place] [id number] PCP - General Family Medicine 04/03/20
--- NOTE | 2024-11-02 05:03 | ECG_ITS ---
Test Date: 2024-11-02 05:04:12 Measurements Intervals [place] Rate: 60 P: 58 SC: 164 QRS: 18 QRSD: 91 T: 64 QT: 432 QTc: 434 Interpretive Statements SINUS RHYTHM NONSPECIFIC T-WAVE ABNORMALITY No previous ECG available for comparison Electronically Signed On 11-03-2024 10:59:58 CDT by Juventino Barraza M.D.
[2024-11-02 05:05] VITALS: PULSE 69
[2024-11-02 05:11] LABS: Basophils Absolute Auto 0.1 K/mm3 (0.0-0.1); Basophils Percent Auto 0.8 % (0.2-1.2); Eosinophils Absolute Auto 0.2 K/mm3 (0-0.3); Hematocrit 35.9 % (37.0-47.0); Hemoglobin 10.6 g/dL (12.0-15.0); Immature Granulocyte Absolute 0.02 K/mm3 (0.00-0.031); Immature Granulocyte Percent A 0.3 % (0-0.5); Lymphocytes Absolute Auto 2.09 K/mm3 (0.9-3.2); Lymphocytes Percent Auto 32.5 % (18.3-44.2); Mean Corpuscular HGB Conc 29.5 g/dl (32-36); Mean Corpuscular Hemoglobin 23.8 pg (26-34); Mean Corpuscular Volume 80.5 fl (80-100); Mean Platelet Volume 11.1 fl (7.4-10.4); Monocytes Absolute Auto 0.6 K/mm3 (0.1-0.6); Monocytes Percent Auto 9.2 % (2.6-8.5); Neutrophils Absolute Auto 3.5 K/mm3 (1.3-6.7); Neutrophils Percent Auto 54.2 % (45.5-73.1); Platelet Count Result 347 k/mm3 (150-375); Red Blood Count 4.46 M/mm3 (4.2-5.4); Red Cell Distribution Width 22.9 % (11.5-14.5); White Blood Count 6.4 K/mm3 (4.5-10.0)
[2024-11-02 05:22] LABS: Alanine Aminotransferase 23 U/L (6-35); Albumin Level 4.6 g/dL (3.5-5.1); Alkaline Phosphatase 82 U/L (38-126); Anion Gap 10 mmol/L (4-12); Aspartate Amino Transferase 32 U/L (14-36); Bilirubin,Total 0.3 mg/dL (0.2-1.3); Blood Urea Nitrogen 16 mg/dL (7-17); Calcium 9.5 mg/dL (8.4-10.2); Carbon Dioxide 25 mmol/L (22-30); Chloride 108 mmol/L (98-107); Estimated CRCL calculation 62 ml/min; Estimated Glomerular Filt Rate 57; Glucose 129 mg/dL (65-110); Lipase 63 U/L (23-300); Potassium 3.6 mmol/L (3.4-5.0); Sodium 143 mmol/L (137-145)
[2024-11-02 05:24] LABS: INR 0.9; Prothrombin Time 12.9 Seconds (11.1-14.7)
[2024-11-02 05:25] LABS: Partial Thromboplastin Time 23.8 Seconds (22.3-36.8)
[2024-11-02 05:29] LABS: Anisocytosis 1+; Hypochromasia 1+; Platelet Estimate Adequate (Adequate); Schistocytes None Seen
[2024-11-02 05:33] LABS: Troponin I < 0.012 ng/mL (0.000-0.034)
--- NOTE | 2024-11-02 06:00 | ED.CHESTPAIN ---
HPI - Chest Pain General Chief Complaint: Chest Pain Stated Complaint: chest pain Time Seen by Provider: 11/02/24 05:11 History of Present Illness HPI narrative: 54-year-old female with history of hypertension, GERD with López's esophagitis presenting to the emergency department with right-sided chest/upper quadrant abdominal pain that was sudden onset woke her up from sleep at 4:18 a.m.. Patient states she went to bed normally without any concerns. She woke up with severe right upper quadrant abdominal pain radiating into her chest and back associated with some diaphoresis and nausea. She went to the bathroom and had a bowel movement. Patient states she got up from the bathroom and symptoms significantly improved prior to arrival to the emergency department and presently she is asymptomatic on my evaluation. She states she feels like she has been having gallbladder issues in this could been related but she was worried about her heart as well. No history of cardiac disease or coronary artery disease. No history of NM. does not take any blood thinner medications. She was otherwise in her normal state of health. No history of abdominal surgeries. No trauma or injury. No fever, chills. Related Data Allergies Allergy/AdvReac Type Severity Reaction Status Date / Time lisinopril Allergy Unknown unk Verified 05/10/24 14:52 olmesartan Allergy Unknown Unknown Verified 05/10/24 14:52 Review of Systems Review of Systems: As reviewed above in HPI PMFSH Past Medical History Medical History Left shoulder pain JORDI (iron deficiency anemia) Vitamin D deficiency López's esophagus GERD (gastroesophageal reflux disease) HTN (hypertension) Family History Family History Father Diabetes mellitus Other Hypertension Social History Social History Smoking status: Never smoker Second hand tobacco smoke exposure: No Alcohol intake: never Substance use: never Substance use type: does not use Living arrangements: with family Occupation/Education: occupation Gender identity (if verbalized by the patient): Female Sexual Orientation (if Verbalized by the Patient): Straight or Heterosexual Exam Narrative: GENERAL: [Well-appearing, well-nourished, and in no acute distress.] HEAD: [Normocephalic, atraumatic.] EYES: [PERRLA and EOMI.] ENT: Nares clear, no rhinorrhea or epistaxis. Mucous membranes moist. NECK: Supple. CHEST: [Clear to auscultation. No respiratory distress.] HEART: [Regular rate and rhythm]. No murmur heard. [Normal peripheral pulses.] ABDOMEN: [Soft, nondistended], [nontender], negative Schaffer sign [No rigidity or guarding] EXTREMITIES: Normal range of motion. [No edema.] SKIN: Warm, dry, no rash. NEURO: [No focal deficits]. Alert and oriented [x3.] PSYCH: [Normal mood and affect.] Course Vital Signs Vital signs: Vital Signs Oxygen Delivery Room Air 11/02/24 05:01 Pulse Rate 58 L 11/02/24 06:02 Respiratory Rate 17 11/02/24 06:02 Blood Pressure 125/79 11/02/24 06:02 Pulse Oximetry 97 11/02/24 06:02 Oxygen Delivery Room Air 11/02/24 05:01 MDM - Chest Pain MDM Narrative Medical decision making narrative: 54-year-old female with history of hypertension, GERD, Ólpez's esophagus. Patient presents to the ER for evaluation of sudden onset right upper quadrant and right-sided chest pain that woke her from sleep associated with nausea and pain radiating towards her back. She went to the bathroom had a bowel movement and had symptomatic resolution prior to arrival to the emergency department. Present she is asymptomatic with a reassuring examination. She has a reassuring set of vitals within normal blood pressure 125/79, pulse 69, 97% on room air. Soft nontender nondistended abdomen. Clear breath sounds throughout, strong symmetric pulses. Considerations presently are for cholelithiasis being symptomatic, cholecystitis, pneumonia, pneumothorax, less likely ACS or cardiopulmonary pathology such as PE. She meets low Wells criteria. Workup initiated this time including CBC, CMP, lipase, chest x-ray and troponin. A CT abdomen pelvis with contrast was ordered to evaluate the right upper quadrant and potential gallbladder pathology as well as any other process. Patient presently is asymptomatic with no pain or nausea. Will be re-evaluated during workup and plan of care based on results. Patient's labs are reassuring with a normal electrolyte panel, normal renal function, normal glucose and LFTs. Troponin is negative. Negative lipase. No signs of leukocytosis. Hemoglobin of 10.6 with no recent baseline to compare to. Normal platelet count. Coagulation panel normal. Chest x-ray shows no acute cardiopulmonary process. CT scan pending. EKG shows sinus rhythm without any ST segment elevations, depressions inversions or any acute occlusive event evidence. Patient CT scan result shows a very large hiatal hernia but no acute process otherwise. No gallbladder concerns at this time. I went and re-evaluated the patient discussed the CT scan findings and she remained completely asymptomatic and pain-free at this time. I discussed that the hernia that she is experiencing might be the source of her discomfort and pain intermittently nature. She did tell me that she has a history of a sliding hernia that somebody mention to her previously. She has never had this investigated or workup. I discussed with her potential outpatient evaluation with General surgery and she was amenable to this. Patient given strict return precautions including recurrence of her pain, persistent chest discomfort, inability to tolerate oral intake or any other concerns and she should get repeat evaluation otherwise given she is asymptomatic with reassuring labs, unremarkable cardiac assessment and CT findings I believe she can be safely discharged home at this time which she was amenable for. Medical Records Data Attestation: I reviewed the patient's medical records. Lab Data Attestation: I reviewed the patient's lab results. 11/02/24 05:04 11/02/24 05:04 Labs: Lab Results 11/02/24 Range/Units 05:04 WBC 6.4 (4.5-10.0) K/mm3 RBC 4.46 (4.2-5.4) M/mm3 Hgb 10.6 L (12.0-15.0) g/dL Hct 35.9 L (37.0-47.0) % MCV 80.5 (80-100) fl MCH 23.8 L (26-34) pg MCHC 29.5 L (32-36) g/dl RDW 22.9 H (11.5-14.5) % Plt Count 347 (150-375) k/mm3 MPV 11.1 H (7.4-10.4) fl Immature Gran % (Auto) 0.3 (0-0.5) % Neut % (Auto) 54.2 (45.5-73.1) % Lymph % (Auto) 32.5 (18.3-44.2) % Jess[place] % (Auto) 9.2 H (2.6-8.5) % Eos % (Auto) 3.0 (0-4.4) % Baso % (Auto) 0.8 (0.2-1.2) % Lymph # (Auto) 2.09 (0.9-3.2) K/mm3 Jess[place] # (Auto) 0.6 (0.1-0.6) K/mm3 Eos # (Auto) 0.2 (0-0.3) K/mm3 Baso # (Auto) 0.1 (0.0-0.1) K/mm3 Abs Immat Gran (auto) 0.02 (0.00-0.031) K/mm3 Absolute Neuts (auto) 3.5 (1.3-6.7) K/mm3 Absolute Nucleated RBC 0.000 (0.0-0.012) K/mm3 Band Neutrophils % Not Reportable Nucleated RBC % 0.0 (0.0-0.2) % Platelet Estimate Adequate (Adequate) Hypochromasia 1+ Anisocytosis 1+ Schistocytes None seen PT 12.9 (11.1-14.7) Seconds INR 0.9 APTT 23.8 (22.3-36.8) Seconds Sodium 143 (137-145) mmol/L Potassium 3.6 (3.4-5.0) mmol/L Chloride 108 H (98-107) mmol/L Carbon Dioxide 25 (22-30) mmol/L Anion Gap 10 (4-12) mmol/L BUN 16 (7-17) mg/dL Creatinine 1.00 (0.7-1.0) mg/dL Estim Creat Clear Calc 62 ml/min Estimated GFR 57 L (59 - ) Glucose 129 H (65-110) mg/dL Calcium 9.5 (8.4-10.2) mg/dL Total Bilirubin 0.3 (0.2-1.3) mg/dL AST 32 (14-36) U/L ALT 23 (6-35) U/L Alkaline Phosphatase 82 (38-126) U/L Troponin I < 0.012 (0.000-0.034) ng/mL Total Protein 8.0 (6.3-8.2) g/dL Albumin 4.6 (3.5-5.1) g/dL Lipase 63 (23-300) U/L Imaging Data Attestation: I personally reviewed and interpreted this imaging study as follows: My impression: Impressions Chest X-Ray 11/02/24 06:08 Impression: Clear lungs. Suspected moderate hiatal hernia. Abdomen/Pelvis CT 11/02/24 06:30 Impression: Large hiatal hernia. Normal gallbladder by CT imaging. ECG Data EKG #1: Attestation: I personally reviewed and interpreted this ECG as follows: ECG completion date: 11/02/24 ECG completion time: 05:04 Prior ECG tracings: not available for review Interpretation: Normal sinus rhythm, no ST segment elevations, depressions or acute inversions. No previous EKG for comparison. Normal sinus rhythm with a QTC 438, QRS 91, MS 164. Discharge Plan Discharge Clinical Impression: Large hiatal hernia, Chest pain, Colicky epigastric pain Patient Disposition: Home Condition: Stable Instructions: Antibiotic Form, Chest Pain (ED), Hiatal Hernia (DC), Laparoscopic Hiatal Hernia Repair (DC) Additional Instructions: Your CT scan shows a normal gallbladder but we did find a large hiatal hernia which could explain her symptomatology especially with the location and size of the defect. Your symptoms being under control at this time is reassuring and your cardiac enzyme and workup was reassuring as well. Follow-up with the provided General surgery Clinic and return with any emergent or worsening concerns at any time. Patient Language: Slovak Prescriptions: No Action amlodipine 5 mg tablet 10 mg PO DAILY Qty: 180 0RF Follow-up/Referrals: Olegario Connell MD [Primary Care Provider] - Sissy Haddad MD [Physician] - 1 Week (Symptomatic hiatal hernia evaluation) Arthur Maza DO [Physician] - 1 Week (Symptomatic hiatal hernia evaluation) Time of Disposition: 06:49
[2024-11-02] MEDS: ASPIRIN 81 MG CHEWABLE TABLET 324 MG PO (06:01)
--- OUTSIDE RECORDS SUMMARY | 2024-11-02 06:01 | XMS_ITS | Clinical Summary ---
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 Pulse 58 06/28/2018 10:25 AM STENOTYPE MACHINE OPERATOR Temperature 36 C (96.8 F) 06/28/2018 10:25 AM STENOTYPE MACHINE OPERATOR Respiratory Rate 16 06/28/2018 10:25 AM STENOTYPE MACHINE OPERATOR Oxygen Saturation 99% 06/28/2018 10:25 AM STENOTYPE MACHINE OPERATOR Inhaled Oxygen Concentration - - Weight 91.6 kg (202 lb) 06/14/2018 3:00 PM STENOTYPE MACHINE OPERATOR Height 165.1 cm (5' 5) 06/14/2018 3:00 PM STENOTYPE MACHINE OPERATOR Body Mass Index 33.61 06/14/2018 3:00 PM STENOTYPE MACHINE OPERATOR Plan of Treatment Health Maintenance Due Date [...] patient's age to complete this topic Insurance [facility] [place] [address] Care Teams Storehouse Clerk Relationship Specialty Start Date End Date Olegario Connell MD [address] [place] [address] PCP - General Family Medicine 04/12/18
--- OUTSIDE RECORDS SUMMARY | 2024-11-02 06:01 | XMS_ITS | Referral Summary ---
Author Organization [facility] [address] Address [address] [place] [address] Care Team Providers Care Wallet Assembler Name Role Phone Olegario Connell MD Primary Care Provider Encounters Date Type Department Care Team Description 09/07/2024 3:19 PM CDT - 09/07/2024 11:59 PM CDT Hospital Encounter [facility] [address] [place] [address] Pre-employment health screening examination Discharge Disposition: Discharge to home or self care 09/07/2024 Orders Only [facility] Healthcare Occupatiuonal Health [address] [facility] [address] (Third Floor) [place] [address] Hardeep Crump MD Pre-employment health screening examination [...] on file 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 T-SPOT.TB Panel A Spot Count [address] [facility] T-SPOT.TB Panel B Spot Count 1 [facility] T-SPOT.TB Negative Control Passed [facility] T-SPOT.TB Positive Control Passed [facility] Comment: Test Performed at: [facility] [employer] [address] [place] [id number] EDDIE CAMEJO,PHD Blood 09/07/2024 10:4 6 AM CDT 09/07/2024 4:15 PM CDT Narrative [facility] - 09/09/2024 11:12 AM CDT Patient is employed by/enrolled at:->[facility] Hardeep Crump MD LAB MICROBIOLOGY - GENERAL OR DERABLES Final Result [facility] [place] [address] * Measles IgG antibody Blood (09/07/2024 10:46 AM CDT) Measles IgG Reactive Comment:Reactive: Results gruber ggest response to immunization or prior exposure to the virus. Blood 09/07/2024 10:4 6 AM CDT 09/07/2024 4:04 PM CDT Narrative [facility] - 09/08/2024 11:22 AM CDT Patient is employed by/enrolled at:->[facility] us Hardeep Crump MD LAB MICROBIOLOGY - GENERAL OR DERABLES Final Result Performing Organization Address [facility] de Phone Number [facility] [place] [address] * Rubella IgG antibody Blood (09/07/2024 10:46 AM CDT) Rubella IgG Reactive Comment:Reactive: Results gruber ggest response to immunization or prior exposure to the virus. Blood 09/07/2024 10:4 6 AM CDT 09/07/2024 4:04 PM CDT Narrative [facility] - 09/08/2024 11:22 AM CDT Patient is employed by/enrolled at:->[facility] us Hardeep Crump MD LAB MICROBIOLOGY - GENERAL OR DERABLES Final Result Performing Organization Address [facility] de Phone Number [facility] [place] [address] * Varicella Zoster IgG antibody Blood (09/07/2024 10:46 AM CDT) VZV IgG Reactive Reactive Comment:Reactive: Results gruber ggest response to immunization or prior exposure to the virus. Blood 09/07/2024 10:4 6 AM CDT 09/07/2024 4:04 PM CDT Narrative [facility] - 09/08/2024 11:22 AM CDT Patient is employed by/enrolled at:->[facility] us Hardeep Crump MD LAB MICROBIOLOGY - GENERAL OR DERABLES Final Result [facility] [place] [address] * Mumps IgG antibody Blood (09/07/2024 10:46 AM CDT) Mumps IgG Reactive Comment:Reactive: Results gruber ggest response to immunization or prior exposure to the virus Blood 09/07/2024 10:4 6 AM CDT 09/07/2024 4:04 PM CDT Narrative [facility] - 09/08/2024 11:22 AM CDT Patient is employed by/enrolled at:->[facility] us Hardeep Crump MD LAB MICROBIOLOGY - GENERAL OR DERABLES Final Result Performing Organization Address [facility] Co de Phone Number [facility] [place] [address] from Last 3 Months Insurance [facility] Care Teams Wallet Assembler Relationship Specialty Start Date End Date Olegario Connell MD [address] [facility] [address] [place] [phone] PCP - General Family Medicine 04/03/20
--- OUTSIDE RECORDS SUMMARY | 2024-11-02 06:01 | XMS_ITS | Clinical Summary ---
Author Organization [facility] [address] Address [address] [place] [address] Care Team Providers Care Construction Craft Laborer Name Role Phone Olegario Connell MD Primary [...] - 09/07/2024 11:59 PM CDT Hospital Encounter [facility] [address] [place] [address] Pre-employment health screening examination Discharge Disposition: Discharge to home or self care 09/07/[address] [facility] Healthcare Occupatiuonal Health [address] [facility] [address] (Third Floor) [place] [address] Hardeep Crump MD Pre-employment health screening examination (Primary Dx) from Last 3 Months Immunizations Immunization Administration Dates Next Due Pfizer SARS-CoV-2 Monovalent Vaccination (12+ Yrs) PURPLE 06/16/2020,05/26/2020 Surgical History Surgery Date Site/Laterality Comments UPPER GASTROINTESTINAL ENDOSCOPY 06/28/2018 [facility], [place] Medical History Medical History Date Comments Hx Other Medical 3 sect ions ; Comments: JNS 11/01/2014 - Social History Tobacco Use Types Packs/Day Years Used Date Smoking Tobacco: Never Comments Unknown Sex and Gender Information Value Date Recorded Sex Assigned at Not on file 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 T-SPOT.TB Panel A Spot Count 0 [facility] T-SPOT.TB Panel B Spot Count 1 [facility] T-SPOT.TB Negative Control Passed [facility] T-SPOT.TB Positive Control Passed [facility] Comment: Test Performed at: [employer], [employer] [address] [place] [phone] EDDIE CAMEJO,PHD Blood 09/07/2024 10:4 6 AM CDT 09/07/2024 4:15 PM CDT Narrative [facility] - 09/09/2024 11:12 AM CDT Patient is employed by/enrolled at:->[facility] Hardeep Crump MD LAB MICROBIOLOGY - GENERAL OR DERABLES Final Result Performing Organization Address City/[facility] Co de Phone Number [facility] [place] [employer] [place] [address] * Measles IgG antibody Blood (09/07/2024 10:46 AM CDT) Measles IgG Reactive Comment:Reactive: Results gruber ggest response to immunization or prior exposure to the virus. Blood 09/07/2024 10:4 6 AM CDT 09/07/2024 4:04 PM CDT Narrative [facility] - 09/08/2024 11:22 AM CDT Patient is employed by/enrolled at:->[facility] Hardeep Crump MD LAB MICROBIOLOGY - GENERAL OR DERABLES Final Result Performing Organization Address City/[facility] Co de Phone Number [facility] [place] [employer] [place] [address] * Rubella IgG antibody Blood (09/07/2024 10:46 AM CDT) Rubella IgG Reactive Comment:Reactive: Results gruber ggest response to immunization or prior exposure to the virus. Blood 09/07/2024 10:4 6 AM CDT 09/07/2024 4:04 PM CDT Narrative [facility] - 09/08/2024 11:22 AM CDT Patient is employed by/enrolled at:->[facility] Hardeep Crump MD LAB MICROBIOLOGY - GENERAL OR DERABLES Final Result Performing Organization Address City/[facility] Co de Phone Number [facility] [place] [employer] [address] * Varicella Zoster IgG antibody Blood (09/07/2024 10:46 AM CDT) VZV IgG Reactive Reactive Comment:Reactive: Results gruber ggest response to immunization or prior exposure to the virus. Blood 09/07/2024 10:4 6 AM CDT 09/07/2024 4:04 PM CDT Narrative [facility] - 09/08/2024 11:22 AM CDT Patient is employed by/enrolled at:->[facility] Hardeep Crump MD LAB MICROBIOLOGY - GENERAL OR DERABLES Final Result Performing Organization Address [facility] [place] [address] * Mumps IgG antibody Blood (09/07/2024 10:46 AM CDT) Mumps IgG Reactive Comment:Reactive: Results gruber ggest response to immunization or prior exposure to the virus Blood 09/07/2024 10:4 6 AM CDT 09/07/2024 4:04 PM CDT Narrative [facility] - 09/08/2024 11:22 AM CDT Patient is employed by/enrolled at:->[facility] Hardeep Crump MD LAB MICROBIOLOGY - GENERAL OR DERABLES Final Result Performing Organization Address City/[facility] [place] [address] from Last [address] [facility] Care Teams Construction Craft Laborer Relationship Specialty Start Date End Date Olegario Connell MD [address] [facility] [address] [place] [address] PCP - General Family Medicine 04/03/20
[2024-11-02 06:02] VITALS: BP 125/79; PULSE 58; RESP 17; O2SAT 97
== END 2024-11-02 07:02 | disposition home or self-care (01) ==
PROVIDERS: Emergency Provider Student in an Organized Health Care Education/Training Program; PCP Family Medicine
DX: K44.9 Diaphragmatic hernia without obstruction or gangrene (principal); I10 Essential (primary) hypertension; D50.9 Iron deficiency anemia, unspecified; E55.9 Vitamin D deficiency, unspecified; K22.70 Barrett's esophagus without dysplasia; K21.9 Gastro-esophageal reflux disease without esophagitis; R94.31 Abnormal electrocardiogram [ECG] [EKG]
CPT/HCPCS: 36415; 71046; 74177; 80053; 83690; 84484; 85025; 85610; 85730; 93005; 99284; A9270; Q9967

== ENCOUNTER 2024-12-06 08:16 | Outpatient (CLI) | payer OTHER, SELFPAY ==
--- NOTE | ~2024-12-06 | US_ITS ---
EXAM: ABDOMEN ULTRASOUND HISTORY: R07.89 - Other chest pain COMPARISON: Reference is made to a CT examination of the abdomen and pelvis dated 11/02/2024. FINDINGS: LIVER: The liver is unremarkable in echogenicity and size. The portal vein is patent, demonstrating hepatopedal flow. GALLBLADDER: No stones are identified within the gallbladder. No gallbladder wall thickening or pericholecystic fluid. An avascular focus of soft tissue echogenicity is identified within the base of the gallbladder measu ring 3.2 x 2.2 x 2.7 mm, which may represent adherent sludge versus a small polyp. BILE DUCTS: Common bile duct measures 4.7mm. PANCREAS: Limited evaluation of the pancreas secondary to overlying bowel gas IMPRESSION: Adherent sludge versus a small avascular polyp within the gallbladder. No additional abnormality is appreciated. Reviewed, dictated and finalized at location A.
--- NOTE | ~2024-12-06 | NM_ITS ---
EXAMINATION: NM hepatobiliary w pharm DATE: 12/06/2024 13:58 INDICATION: Chest pain. Right upper quadrant abdominal pain for months prior COMPARISON: None. TECHNIQUE: 5.3 mCi Tc-99m mebrofenin (Choletec) was administered intravenously. Scintigraphic images of the abdomen were obtained for one hour. Sincalide (Kinevac) was administered by slow intravenous infusion, and imaging was continued for 30 minutes. Gallbladder ejection fraction was calculated by arthur cheek technologist. FINDINGS: There is normal clearance of radiotracer from the blood pool. There is homogeneous tracer uptake by arthur cheek liver. Activity progresses to the gallbladder and bowel. The gallbladder ejection fraction (GBEF) is 70% (normal 10-90%, but most patient with gallbladder dysfunction have GBEF < 35% which does over lap with the normal range). IMPRESSION: 1. Normal hepatobiliary scan. Reviewed, dictated and finalized at location A.
--- OUTSIDE RECORDS SUMMARY | 2024-12-06 08:20 | XMS_ITS | Patient Health Record ---
Author Organization [employer] Address [address] [place] [address] Care Team Providers Care Firearms Specialist Name Role Phone Olegario Connell MD Primary [...] Problem Status W/U Status Risk Notes Problem [id number] Chronic GERD (K21.9) Active confirmed She is currently doing well on Prilosec 20mg at nighttime. She does have mild solid food dysphagia. Will obtain her previous EGD report before considering repeat. 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 Problem [id number] Incontinence of feces, unspecified fecal incontinence type [...] Insured Coverage Start Date Coverage End Date [employer] E[employer] [address] [address] [place] [phone] [id number] Maris Reed Self - patient is the insured Medical (General) History Medical History History ICD Code GERD López's Esophagus Anemia Hypertension Surgical History Surgery Date(Month/Year) EGD (Outside Provider) 5+ years Colonoscopy (Outside Provider) 5+ years x3 Hospitalization History Reason Date(Month/Year) GERD, rule out cardiac issues
--- OUTSIDE RECORDS SUMMARY | 2024-12-06 08:20 | XMS_ITS | Clinical Summary ---
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 Pulse 58 06/28/2018 10:25 AM ROOFING SUBCONTRACTOR Temperature 36 C (96.8 F) 06/28/2018 10:25 AM ROOFING SUBCONTRACTOR Respiratory Rate 16 06/28/2018 10:25 AM ROOFING SUBCONTRACTOR Oxygen Saturation 99% 06/28/2018 10:25 AM ROOFING SUBCONTRACTOR Inhaled Oxygen Concentration - - Weight 91.6 kg (202 lb) 06/14/2018 3:00 PM ROOFING SUBCONTRACTOR Height 165.1 cm (5' 5) 06/14/2018 3:00 PM ROOFING SUBCONTRACTOR Body Mass Index 33.61 06/14/2018 3:00 PM ROOFING SUBCONTRACTOR Plan of Treatment Health Maintenance Due Date Last Done Comments Hepatitis C Virus (HCV) Screening 1970 TdaP Immunization 1970 Hepatitis B Immunization (1 of 3 - 19+ 3-dose series) 1987 Cologuard 2013 Colonoscopy 2013 Colorectal Cancer Screening 2013 Immunochemical Fecal Occult Blood 2013 Pneumococcal Immunization (5 0+ years) (1 of 1 - PCV) 2018 Zoster Immunization (1 of 2) 2018 SARS-COV-2 Immunization (3 - 2023- season) 2024 06/16/2020, 05/26/2020 Influenza Immunization (Seas on Ended) 2025 Respiratory Syncytial Virus (RSV) Immunization (Adult) (1 - 1-dose 75+ series) 2043 Human Papillomavirus (HPV) Immunization Aged Out No longer eligible b ased on patient's age to complete this topic Meningococcal Immunization (ACWY) Aged Out No longer eligible b ased on patient's age to complete this topic Rotavirus Immunization Aged Out No lo nger eligible based on patient's age to complete this topic Insurance [facility] Care Teams Creeler Relationship Specialty Start Date End Date Olegario Connell MD [address] [place] [address] PCP - General Family Medicine 04/12/18
--- OUTSIDE RECORDS SUMMARY | 2024-12-06 08:20 | XMS_ITS | Referral Summary ---
Author Organization [facility] [address] Address [address] [place] [address] Care Team Providers Care Insulation Worker Furnace Installer Name Role Phone Olegario Connell MD Primary Care Provider Encounters Date Type Department Care Team Description 09/07/2024 3:19 PM CDT - 09/07/2024 11:59 PM CDT Hospital Encounter [facility] [address] [place] [address] Pre-employment health screening examination Discharge Disposition: Discharge to home or self care 09/07/2024 Orders Only [facility] Healthcare Occupatiuonal Health [address] [facility] Room [address] (Third Floor) [place] [address] Hardeep Crump MD Pre-employment health screening examination [...] on file 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 T-SPOT.TB Panel A Spot Count 0 [facility] T-SPOT.TB Panel B Spot Count 1 [facility] T-SPOT.TB Negative Control Passed [facility] T-SPOT.TB Positive Control Passed [facility] Comment: Test Performed at: [employer] [facility], [employer] [address] [place] [phone] EDDIE CAMEJO,PHD Blood 09/07/2024 10:4 6 AM CDT 09/07/2024 4:15 PM CDT Narrative [facility] - 09/09/2024 11:12 AM CDT Patient is employed by/enrolled at:->[facility] Hardeep Crump MD LAB MICROBIOLOGY - GENERAL OR DERABLES Final Result [facility] [place] [address] * Measles IgG antibody Blood (09/07/2024 10:46 AM CDT) Measles IgG Reactive Comment:Reactive: Results gruber ggest response to immunization or prior exposure to the virus. Blood 09/07/2024 10:4 6 AM CDT 09/07/2024 4:04 PM CDT Narrative [facility] - 09/08/2024 11:22 AM CDT Patient is employed by/enrolled at:->[facility] us Hardeep Crump MD LAB MICROBIOLOGY - GENERAL OR DERABLES Final Result Performing Organization Address [facility] de Phone Number [facility] [place] [address] * Rubella IgG antibody Blood (09/07/2024 10:46 AM CDT) Rubella IgG Reactive Comment:Reactive: Results gruber ggest response to immunization or prior exposure to the virus. Blood 09/07/2024 10:4 6 AM CDT 09/07/2024 4:04 PM CDT Narrative [facility] - 09/08/2024 11:22 AM CDT Patient is employed by/enrolled at:->[facility] us Hardeep Crump MD LAB MICROBIOLOGY - GENERAL OR DERABLES Final Result Performing Organization Address [facility] de Phone Number [facility] [place] [address] * Varicella Zoster IgG antibody Blood (09/07/2024 10:46 AM CDT) VZV IgG Reactive Reactive Comment:Reactive: Results gruber ggest response to immunization or prior exposure to the virus. Blood 09/07/2024 10:4 6 AM CDT 09/07/2024 4:04 PM CDT Narrative [facility] - 09/08/2024 11:22 AM CDT Patient is employed by/enrolled at:->[facility] us Hardeep Crump MD LAB MICROBIOLOGY - GENERAL OR DERABLES Final Result [facility] [place] [address] * Mumps IgG antibody Blood (09/07/2024 10:46 AM CDT) Mumps IgG Reactive Comment:Reactive: Results gruber ggest response to immunization or prior exposure to the virus Blood 09/07/2024 10:4 6 AM CDT 09/07/2024 4:04 PM CDT Narrative [facility] - 09/08/2024 11:22 AM CDT Patient is employed by/enrolled at:->[facility] us Hardeep Crump MD LAB MICROBIOLOGY - GENERAL OR DERABLES Final Result Performing Organization Address [facility] Co de Phone Number [facility] [place] [address] from Last 3 Months Insurance [facility] H[facility]/PPO Address: [address] [address] [facility] H[facility]/PPO Address: [address] [address] Care Teams Insulation Worker Furnace Installer Relationship Specialty Start Date End Date Olegario Connell MD [address] [facility] [address] [place] [id number] PCP - General Family Medicine 04/03/20
--- OUTSIDE RECORDS SUMMARY | 2024-12-06 08:20 | XMS_ITS | Clinical Summary ---
Author Organization [facility] [address] Address [address] [place] [address] Care Team Providers Care Public Relations Name Role Phone Olegario Connell MD Primary [...] - 09/07/2024 11:59 PM CDT Hospital Encounter [facility] [address] [place] [address] Pre-employment health screening examination Discharge Disposition: Discharge to home or self care 09/07/2024 Orders Only [facility] Healthcare Occupatiuonal Health [address] [facility] Room [address] (Third Floor) [place] [address] Hardeep Crump MD Pre-employment health screening examination (Primary Dx) from Last 3 Months Immunizations Immunization Administration Dates Next Due Pfizer SARS-CoV-2 Monovalent Vaccination (12+ Yrs) PURPLE 06/16/2020,05/26/2020 Surgical History Surgery Date Site/Laterality Comments UPPER GASTROINTESTINAL ENDOSCOPY 06/28/2018 [facility] [place], [place] Medical History Medical History Date Comments Hx Other Medical 3 sect ions ; Comments: JNS 11/01/2014 - Social History Tobacco Use Types Packs/Day Years Used Date Smoking Tobacco: Never Comments Unknown Sex and Gender Information Value Date Recorded Sex Assigned at Not on file 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 T-SPOT.TB Panel A Spot Count 0 [facility] T-SPOT.TB Panel B Spot Count 1 [facility] T-SPOT.TB Negative Control Passed [facility] T-SPOT.TB Positive Control Passed [facility] Comment: Test Performed at: [employer] [facility], [employer] [address] [place] [phone] EDDIE CAMEJO,PHD Blood 09/07/2024 10:4 6 AM CDT 09/07/2024 4:15 PM CDT Narrative [facility] - 09/09/2024 11:12 AM CDT Patient is employed by/enrolled at:->[facility] Hardeep Crump MD LAB MICROBIOLOGY - GENERAL OR DERABLES Final Result Performing Organization Address City/[facility] Co de Phone Number [facility] [employer] [address] * Measles IgG antibody Blood (09/07/2024 10:46 AM CDT) Measles IgG Reactive Comment:Reactive: Results gruber ggest response to immunization or prior exposure to the virus. Blood 09/07/2024 10:4 6 AM CDT 09/07/2024 4:04 PM CDT Narrative [facility] - 09/08/2024 11:22 AM CDT Patient is employed by/enrolled at:->[facility] Hardeep Crump MD LAB MICROBIOLOGY - GENERAL OR DERABLES Final Result Performing Organization Address City/[facility] Co de Phone Number [facility] [place] [address] [place] [address] * Rubella IgG antibody Blood (09/07/2024 10:46 AM CDT) Rubella IgG Reactive Comment:Reactive: Results gruber ggest response to immunization or prior exposure to the virus. Blood 09/07/2024 10:4 6 AM CDT 09/07/2024 4:04 PM CDT Narrative [facility] - 09/08/2024 11:22 AM CDT Patient is employed by/enrolled at:->[facility] Hardeep Crump MD LAB MICROBIOLOGY - GENERAL OR DERABLES Final Result Performing Organization Address City/[facility] Co de Phone Number [facility] [address] [address] * Varicella Zoster IgG antibody Blood (09/07/2024 10:46 AM CDT) VZV IgG Reactive Reactive Comment:Reactive: Results gruber ggest response to immunization or prior exposure to the virus. Blood 09/07/2024 10:4 6 AM CDT 09/07/2024 4:04 PM CDT Narrative [facility] - 09/08/2024 11:22 AM CDT Patient is employed by/enrolled at:->[facility] Hardeep Crump MD LAB MICROBIOLOGY - GENERAL OR DERABLES Final Result Performing Organization Address [facility] [place] [address] * Mumps IgG antibody Blood (09/07/2024 10:46 AM CDT) Mumps IgG Reactive Comment:Reactive: Results gruber ggest response to immunization or prior exposure to the virus Blood 09/07/2024 10:4 6 AM CDT 09/07/2024 4:04 PM CDT Narrative [facility] - 09/08/2024 11:22 AM CDT Patient is employed by/enrolled at:->[facility] Hardeep Crump MD LAB MICROBIOLOGY - GENERAL OR DERABLES Final Result Performing Organization Address City/[facility] [place] [address] from Last 3 Months Insurance [facility] H[facility]/PPO Address: [address] [address] [facility] H[facility]/PPO Address: [address] [address] Care Teams Public Relations Relationship Specialty Start Date End Date Olegario Connell MD [address] [facility] [address] [place] [address] PCP - General Family Medicine 04/03/20
== END 2024-12-06 08:17 | disposition home or self-care (01) ==
PROVIDERS: PCP Family Medicine; Visit Provider Surgery
DX: R07.89 Other chest pain (principal); K21.9 Gastro-esophageal reflux disease without esophagitis; K44.9 Diaphragmatic hernia without obstruction or gangrene
CPT/HCPCS: 76705; 78227; A9537; J2805

== ENCOUNTER 2025-02-12 06:09 | Day surgery (SDC) | payer OTHER, SELFPAY ==
[2024-12-29 10:07] VITALS: BMI 37.5
[2025-01-25 10:50] VITALS: BMI 37.7
[2025-02-12 06:46] VITALS: BP 151/88; PULSE 65; RESP 16; TEMP 36.5; O2SAT 97
[2025-02-12] MEDS: LACTATED RINGERS 1,000 ML 150 ML IV CONT (07:00)
--- NOTE | 2025-02-12 07:15 | WPDANESEPPF ---
Anes - Initial Pre Proc Eval Procedure: Operation Date: 02/12/25 08:00 Proposed Procedures p Esophagogastroduodenoscopy - Eddi Frank MD Date/Time: 02/12/25 07:15 Surgeon: Eddi Frank MD Pre Op Diagnosis: GERD, López's Esophagus w/o Dysplasia Patient Data Age: 54 Gender: F Height: 1.65 m Weight: 100.7 kg Last Vital Signs Temp 97.7 F 02/12/25 06:46 Pulse 65 02/12/25 06:46 Resp 16 02/12/25 06:46 BP 151/88 H 02/12/25 06:46 Pulse Ox 97 02/12/25 06:46 O2 Del Method Room Air 02/12/25 06:46 Allergies Allergy/AdvReac Type Severity Reaction Status Date / Time lisinopril AdvReac Intermediate Cough Verified 02/12/25 06:45 Home Medications ?Medication ?Instructions ?Recorded ?Confirmed ?Type amlodipine 5 mg tablet 10 mg (2 x 5 mg) PO DAILY #180 tabs 10/10/24 02/12/25 Rx famotidine 20 mg tablet (Pepcid) 20 mg PO DAILY 12/04/24 02/12/25 History Lactobacillus acidophilus 10 100 mmu cells PO DAILY 01/25/25 02/12/25 History billion cell capsule (Probiotic) Patient hx anesthesia problems: none Family hx anesthesia problems: none Results Review: All pre-operative results and documents have been reviewed as part of the pre-operative evaluation. [facility] Past Medical History Medical History (Updated 12/04/24 @ 14:14 by AILEEN SantamariaN-C) Abdominal bloating Left shoulder pain JORDI (iron deficiency anemia) Vitamin D deficiency López's esophagus GERD (gastroesophageal reflux disease) HTN (hypertension) Surgical History Surgical History Hx of section 1988 2002 2003 Family History Family History Father Diabetes mellitus Hypertension Sibling Hypertension Grandparent Hypertension Social History Social History Smoking status: Never smoker Second hand tobacco smoke exposure: No Alcohol intake: never Substance use: never Substance use type: does not use Do You Feel Safe in your Home?: Yes Lack of Transportation: No Lack of Food: Never True Current Housing: I Have Housing Concerned About Future Housing: No Difficulty Paying Gas/Electric Bills: No Difficulty Paying for Meds: No Currently Unemployed: No Education: Bachelor's Degree Difficulty w/ Childcare or Family Care: No Living arrangements: with family Occupation/Education: occupation Gender identity (if verbalized by the patient): Female Sexual Orientation (if Verbalized by the Patient): Straight or Heterosexual Spiritual care concerns: No Agree to blood products: Yes Anes - Eval Final PreProcedure Day of Procedure 02/12/25 07:15 Heart: regular rate and rhythm Lungs: clear to auscultation Airway: Mallampati scale class II Neurological: alert and oriented Last oral intake: >/= 8 hours ASA classification: II Anesthetic plan: proceed Anesthesia type and monitoring: monitored anesthesia care Results Review: All pre-operative results and documents have been reviewed as part of the pre-operative evaluation. Informed Consent: The patient's anesthetic plan and its attendant risks and benefits were discussed with the patient/family/POA. Questions were solicited and answers provided to the satisfaction of the patient/family/POA.
--- NOTE | 2025-02-12 08:01 | PM.IMHP ---
H&P: [facility] History of Present Illness Date/Time: 02/12/25 08:01 Chief Complaint: GERD Narrative: this patient has a longstanding diagnosis of a hiatal hernia, and there is a controversy regarding the diagnosis of López's esophagus: Her latest endoscopy apparently showed it the her reflux is currently controlled with Pepcid which she takes daily. She is also careful with non pharmacologic measures to treat reflux such as eating Healthy and going to bed within an empty stomach. She is now referred for EGD. Review of Systems Review of Systems: All systems reviewed & are unremarkable except as noted in HPI and below PMFSH Past Medical History Medical History (Updated 12/04/24 @ 14:14 by OTONIEL Santamaria) Abdominal bloating Left shoulder pain JORID (iron deficiency anemia) Vitamin D deficiency López's esophagus GERD (gastroesophageal reflux disease) HTN (hypertension) Surgical History Surgical History Hx of section 1988 2002 2003 Family History Family History Father Diabetes mellitus Hypertension Sibling Hypertension Grandparent Hypertension Social History Social History Smoking status: Never smoker Second hand tobacco smoke exposure: No Alcohol intake: never Substance use: never Substance use type: does not use Do You Feel Safe in your Home?: Yes Lack of Transportation: No Lack of Food: Never True Current Housing: I Have Housing Concerned About Future Housing: No Difficulty Paying Gas/Electric Bills: No Difficulty Paying for Meds: No Currently Unemployed: No Education: Bachelor's Degree Difficulty w/ Childcare or Family Care: No Living arrangements: with family Occupation/Education: occupation Gender identity (if verbalized by the patient): Female Sexual Orientation (if Verbalized by the Patient): Straight or Heterosexual Spiritual care concerns: No Agree to blood products: Yes Meds Home Medications and Allergies Home Medications ?Medication ?Instructions ?Recorded ?Confirmed ?Type amlodipine 5 mg tablet 10 mg (2 x 5 mg) PO DAILY #180 tabs 10/10/24 02/12/25 Rx famotidine 20 mg tablet (Pepcid) 20 mg PO DAILY 12/04/24 02/12/25 History Lactobacillus acidophilus 10 100 mmu cells PO DAILY 01/25/25 02/12/25 History billion cell capsule (Probiotic) Allergies Allergy/AdvReac Type Severity Reaction Status Date / Time lisinopril AdvReac Intermediate Cough Verified 02/12/25 06:45 Vital Signs Vital Signs - 24 hr 02/12/25 06:46 Temperature 97.7 F Pulse Rate 65 Respiratory Rate 16 Blood Pressure 151/88 H Pulse Oximetry 97 Oxygen Delivery Room Air Exam Const: General: cooperative and healthy appearing Resp: Effort & Inspection: normal respiratory effort and able to speak in complete sentences Auscultation: clear to auscultation bilaterally Cardio: Rate: regular rate Rhythm: regular rhythm GI: Inspection: normal to inspection GI Palp: No No hepatosplenomegaly present Auscultation: normal bowel sounds Rectal Exam: deferred Skin: General skin exam: normal color Psych: Appearance: grossly normal Mental Status: mental status grossly normal Assessment and Plan Assessment and plan (1) GERD (gastroesophageal reflux disease): Qualifiers: Esophagitis presence: esophagitis presence not specified Qualified Code(s): K21.9 - Gastro-esophageal reflux disease without esophagitis Code(s): K21.9 - Gastro-esophageal reflux disease without esophagitis Status: Acute Assessment and Plan: The patient is deemed a good candidate for the EGD. Consent signed. Will proceed. (2) Hiatal hernia: Code(s): K44.9 - Diaphragmatic hernia without obstruction or gangrene Status: Acute
--- NOTE | 2025-02-12 08:38 | WPDANESPN ---
Anes - Prog Note Post-Op Date/Time: 02/12/25 08:38 Vital Signs: Last Vital Signs Temp 97.7 F 02/12/25 06:46 Pulse 65 02/12/25 06:46 Resp 16 02/12/25 06:46 BP 151/88 H 02/12/25 06:46 Pulse Ox 97 02/12/25 06:46 O2 Del Method Room Air 02/12/25 06:46 Pain Score (VAS): no Patient Feedback: Patient satisfied with anesthetic care.
[2025-02-12 08:41] VITALS: BP 112/64; PULSE 63; RESP 14; O2SAT 95
--- NOTE | 2025-02-12 08:46 | WPDANESPN ---
Anes - Prog Note Post-Op Date/Time: 02/12/25 08:46 Vital Signs: Last Vital Signs Temp 97.7 F 02/12/25 06:46 Pulse 65 02/12/25 06:46 Resp 16 02/12/25 06:46 BP 151/88 H 02/12/25 06:46 Pulse Ox 97 02/12/25 06:46 O2 Del Method Room Air 02/12/25 06:46 Pain Score (VAS): no Patient Feedback: Patient satisfied with anesthetic care.
[2025-02-12 08:51] VITALS: BP 110/71; PULSE 60; RESP 14; O2SAT 98
[2025-02-12 09:01] VITALS: BP 126/85; PULSE 56; RESP 14; O2SAT 97
== END 2025-02-12 09:33 | disposition home or self-care (01) ==
PROVIDERS: PCP Family Medicine; Visit Provider Internal Medicine Gastroenterology
PROC: 0DJ08ZZ Inspection of Upper Intestinal Tract, Via Natural or Artificial Opening Endoscopic (ICD-10-PCS; CPT 43249; principal; 2025-02-12 08:00)
DX: K21.9 Gastro-esophageal reflux disease without esophagitis (principal); K44.9 Diaphragmatic hernia without obstruction or gangrene; K22.70 Barrett's esophagus without dysplasia; K29.50 Unspecified chronic gastritis without bleeding; K31.A19 Gastric intestinal metaplasia without dysplasia, unspecified site
CPT/HCPCS: 43249

== ENCOUNTER 2025-02-12 08:30 | Outpatient (NON) | payer OTHER, SELFPAY ==
--- NOTE | 2025-02-12 | S_PTH ---
PATIENT: Maris Reed LOC: [facility] U#:[id number] AGE/SX: 54/F ROOM: RE02/12/[address]: Eddi Frank MD : 1970 BED: DIS: 02/12/2025 SPEC #: [id number] RECD: 02/13/25 09:17 STATUS: VASHTI REQ #: [id number] JUNIOR: 02/12/25 00:[address]: Eddi Frank DEPT: [facility] Surgical RECD BY: Fátima Madera ENTERED: 02/13/25 09:19 SP TYPE: Surgical OTHR DR: Olegario Connell MD Tissues: A - Esophageal Biopsy B - Esophageal Biopsy Procedures: Hematoxylin and Eosin Stain Gross and Microscopic Level 4
--- OUTSIDE RECORDS SUMMARY | 2025-02-13 08:57 | XMS_ITS | Clinical Summary ---
Author Organization [facility] [place] [address] Address [address] [place] [address] Care Team Providers Care Fundraising Specialist Name Role Phone Olegario Connell MD [...] Encounters Date Type Department Care Team Description 12/25/2024 Orders Only [address] (Third Floor) [place] [address] Candy Charles, AKIRA Exposure to MRSA (Primary Dx) from Last 3 Months Immunizations Immunization Administration Dates Next Due Pfizer SARS-CoV-2 Monovalent Vaccination (12+ Yrs) PURPLE 06/16/2020,05/26/2020 Surgical History Surgery Date Site/Laterality Comments UPPER GASTROINTESTINAL ENDOSCOPY 06/28/2018 [facility] [place], [place] Medical History Medical History Date Comments Hx Other Medical 3 sect ions 1988/2002/2003; Comments: JNS 11/01/2014 - Social History Tobacco Use Types Packs/Day Years Used Date Smoking Tobacco: Never Comments Unknown Sex and Gender Information Value Date Recorded Sex Assigned at Not on file 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
--- OUTSIDE RECORDS SUMMARY | 2025-02-13 08:57 | XMS_ITS | Patient Health Record ---
Author Organization [facility] Address [address] [facility] [address] [place] [address] Care Team Providers Care Special Education Professor Name Role Phone Olegario Connell MD Primary [...] Problem Status W/U Status Risk Notes Problem [id number] Chronic GERD (K21.9) Active confirmed She is currently doing well on Prilosec 20mg at nighttime. She does have mild solid food dysphagia. 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 Problem [id number] Incontinence of feces, unspecified fecal incontinence type [...] Insured Coverage Start Date Coverage End Date [facility] [employer]2 [address] [address] [place] [phone] [id number] Maris Reed Self - patient is the insured Medical (General) History Medical History History ICD Code GERD López's Esophagus Anemia Hypertension Surgical History Surgery Date(Month/Year) EGD (Outside Provider) 5+ years Colonoscopy (Outside Provider) 5+ years x3 Hospitalization History Reason Date(Month/Year) GERD, rule out cardiac issues
--- OUTSIDE RECORDS SUMMARY | 2025-02-13 08:57 | XMS_ITS | Clinical Summary ---
Author Organization [facility] Address [address] [facility], [address] [address] Phone Care Team Providers Care Auto Body Customizer Name Role Phone Olegario Connell MD Primary [...] Comments Blood Pressure 149/95 06/28/2018 10:25 AM HEALTHCARE ASSOCIATE Pulse 58 06/28/2018 10:25 AM HEALTHCARE ASSOCIATE Temperature 36 C (96.8 F) 06/28/2018 10:25 AM HEALTHCARE ASSOCIATE Respiratory Rate 16 06/28/2018 10:25 AM HEALTHCARE ASSOCIATE Oxygen Saturation 99% 06/28/2018 10:25 AM HEALTHCARE ASSOCIATE Inhaled Oxygen Concentration - - Weight 91.6 kg (202 lb) 06/14/2018 3:00 PM HEALTHCARE ASSOCIATE Height 165.1 cm (5' 5) 06/14/2018 3:00 PM HEALTHCARE ASSOCIATE Body Mass Index 33.61 06/14/2018 3:00 PM HEALTHCARE ASSOCIATE Plan of Treatment Health Maintenance Due Date Last Done Comments Hepatitis C Virus (HCV) Screening 1968 TdaP Immunization 1968 Hepatitis B Immunization (1 of 3 - 19+ 3-dose series) 1987 Pap Smear 1989 Cervical Cancer Screening (CCS) 1998 HPV/Cotest 1998 Cologuard 2013 Colonoscopy 2013 Colorectal Cancer Screening 2013 Immunochemical Fecal Occult Blood 2013 Pneumococcal Immunization (5 0+ years) (1 of 1 - PCV) 2018 Zoster Immunization (1 of 2) 2018 Influenza Immunization (#1) 2025 SARS-COV-2 Immunization (2024- season) 2025 06/16/2020, 05/26/2020 Respiratory Syncytial Virus (RSV) Immunization [...] age to complete this topic Insurance [facility] Care Teams Auto Body Customizer Relationship Specialty Start Date End Date Olegario Connell MD [address] [place] [address] PCP - General Family Medicine 04/12/18
== END 2025-02-12 08:31 | disposition home or self-care (01) ==
LOC: ANHLAB 02-13 08:31
PROVIDERS: PCP Family Medicine; Visit Provider Internal Medicine Gastroenterology
DX: K21.9 Gastro-esophageal reflux disease without esophagitis (principal)
CPT/HCPCS: 88305